=== PATIENT | male | born 1975 | race Caucasian/White ===

== ENCOUNTER 2017-10-26 22:57 | Emergency (ER) | payer MEDICARE ==
[2017-10-26 23:28] LABS: BILIRUBIN,URINE NEGATIVE (NEG); CLARITY,URINE CLEAR; COLOR,URINE YELLOW; GLUCOSE,URINE NEGATIVE (NEG); NITRITE,URINE NEGATIVE (NEG); PH,URINE 5.5; PROTEIN,URINE NEGATIVE (NEG-TRACE); UROBILINOGEN,URINE 0.2 mg/dL (0.2 mg/dL)
[2017-10-26] MEDS: HYDROcodone/APAP 5/325MG 1 TAB TABLET PO (23:30)
[2017-10-26] MEDS: CYCLOBENZAPRINE 10 MG TABLET. PO (23:30)
[2017-10-26] MEDS: NAPROXEN 500 MG TABLET PO (23:30)
[2017-10-26 23:33] LABS: BACTERIA,URINE 0 /HPF (0-FEW); RBC,URINE RARE /HPF (0-2); SQUAMOUS EPITHELIAL CELL,UR OCC /LPF; WBC,URINE RARE /HPF (0-4)
== END 2017-10-27 00:17 | disposition home or self-care (01) ==
LOC: ER 10-27 00:17
DX: M54.41 Lumbago with sciatica, right side (principal)
CPT/HCPCS: 81001; 99284